=== PATIENT | male | born 1985 | race Caucasian/White ===

== ENCOUNTER 2017-02-03 13:02 | Emergency (ER) | payer OTHER ==
[2017-02-03 13:08] VITALS: O2SAT 98
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
[2017-02-03 14:24] VITALS: BP 139/88; PULSE 67; RESP 14; TEMP 97.5
== END 2017-02-03 14:23 | disposition home or self-care (01) ==
DX: S00.83XA Contusion of other part of head, initial encounter (principal); S09.90XA Unspecified injury of head, initial encounter; H11.32 Conjunctival hemorrhage, left eye; F17.200 Nicotine dependence, unspecified, uncomplicated; W22.8XXA Striking against or struck by other objects, initial encounter

== ENCOUNTER → 2017-02-11 | Outpatient (CLI) | payer OTHER ==
[~2017-02-11] MED LIST: IOPAMIDOL (ISOVUE-300) 100 ML BTL ONE
== END ==
LOC: CIMAGING 09:30
PROVIDERS: ATTEND Nurse Practitioner Family
DX: S02.40FA Zygomatic fracture, left side, initial encounter for closed fracture (principal); S02.82XA Fracture of other specified skull and facial bones, left side, initial encounter for closed fracture; S02.40DA Maxillary fracture, left side, initial encounter for closed fracture
CPT/HCPCS: 70470-PO; Q9967